=== PATIENT | male | born 2000 | race Caucasian/White ===

== ENCOUNTER 2022-04-28 13:17 | Emergency (ER) | payer OTHER, SELFPAY ==
[2022-04-28 13:20] VITALS: BP 120/76; PULSE 84; RESP 16; TEMP 36.4; O2SAT 98; BMI 20.8
--- NOTE | 2022-05-06 06:32 | ED.UPPEXIN ---
HPI - Extremity Injury (Upper) General Chief Complaint: Extremity Pain/Injury, Upper Stated Complaint: Lac right hand ring/middle fingers Time Seen by Provider: 04/28/22 13:26 History of Present Illness HPI narrative: 21-year-old young man presenting to the emergency department after sustaining lacerations to the right middle and right ring fingers. Was putting away a meat wrapper I think into the feeder associate yet, that had just been disinfected and unfortunately cut himself on the blade. Managed to control the bleeding. Here for further evaluation treatment. Related Data Allergies Allergy/AdvReac Type Severity Reaction Status Date / Time No Known Drug Allergies Allergy Verified 04/28/22 13:24 Review of Systems Status of ROS: Reports: 6 or more systems reviewed and unremarkable except as noted in History and below [facility] Social History Smoking Status: Never smoker Do you use any of these nicotine containing products: Vaping Products How often do you have a drink containing alcohol: 2-3 times a week How many standard drinks containing alcohol do you have on a typical day: 5 or 6 How often do you have six or more drinks on one occasion: Never AUDIT-C Alcohol total score: 5 Non-prescribed substance use: denies use Exam Narrative: Exam Narrative: Pleasant. NAD. Breathing easily. Favoring the right hand. Bandages in place. Sensation intact. Moving all joints without difficulty. Removing bandages -- Across the distal phalanx bilaterally 1 cm and a 2 cm lacerations the ring finger and middle finger respectively. Bleed when manipulated. Dorsal surface. Good strength to resisted extension of the fingers. Clean wounds. Const: Documenting provider has reviewed patient's vital signs: yes Course Vital Signs Vital signs: Initial Vital Signs Temperature 97.5 F L 04/28/22 13:20 Temperature Source Temporal Artery Scan 04/28/22 13:20 Pulse Rate 84 04/28/22 13:20 Pulse Rhythm 04/28/22 13:20 Pulse Strength 3+ Normal 04/28/22 13:20 Respiratory Rate 16 04/28/22 13:20 Blood Pressure 120/76 04/28/22 13:20 Blood Pressure Mean 90 04/28/22 13:20 Blood Pressure Position Sitting 04/28/22 13:20 Pulse Oximetry 98 04/28/22 13:20 Oxygen Delivery Method 04/28/22 13:20 Vital Signs Temperature 97.5 F L 04/28/22 13:20 Pulse Rate 84 04/28/22 13:20 Respiratory Rate 16 04/28/22 13:20 Blood Pressure 120/76 04/28/22 13:20 Pulse Oximetry 98 04/28/22 13:20 Oxygen Delivery Method 04/28/22 13:20 Temperature 97.5 F L 04/28/22 13:20 Pulse Rate 84 04/28/22 13:20 Respiratory Rate 16 04/28/22 13:20 Blood Pressure 120/76 04/28/22 13:20 Pulse Oximetry 98 04/28/22 13:20 Oxygen Delivery Method 04/28/22 13:20 MDM - Extremity Injury (Upper) MDM Narrative Medical decision making narrative: Lidocaine placed in digital block. Required re-dosing more distally. Ultimately good wound anesthesia achieved. Cleansed with Hibiclens solution and water. Closed with 5 and 6 0 Ethilon. Good wound approximation. Minimal oozing of blood. Antibiotic ointment and dressing placed See patient discharge plan Discharge Plan Discharge Clinical Impression: Finger laceration Patient Disposition: Home, Self-Care Condition: Improved Additional Instructions: Can clean up initially as needed. Sutures out in? 8-10 days. Okay to get wet but avoid soaking while sutures are in. Antibiotic ointment for 4 - 5 days and then to a dry bandage. Report redness passing the first knuckle, spreading redness after 2 days, marked increase in pain, purulent drainage, fever. for scar reduction/wound healing if desired-- after scab falls, can apply daily vitamin e oil, emu oil or silicone-containing ointments or bandages.? in particular, protect from the sun for the first 9 - 12 months. Follow Up/Referrals: Provider,Not a Local [Primary Care Provider] - Stand Alone Forms: [employer] Info Instructions
== END 2022-04-28 15:06 | disposition home or self-care (01) ==
PROVIDERS: Emergency Provider Family Medicine
DX: S61.212A Laceration without foreign body of right middle finger without damage to nail, initial encounter (principal); S61.214A Laceration without foreign body of right ring finger without damage to nail, initial encounter; W29.0XXA Contact with powered kitchen appliance, initial encounter
CPT/HCPCS: 12001; 99283; 99284